=== PATIENT | male | born 1950 | race Caucasian/White ===

== ENCOUNTER → 2019-11-18 | Day surgery (SDC) | payer OTHER ==
[~2019-11-18] MED LIST: Brimonidine 0.2% Ophth Soln 5 ML Bottle EYEBOTH SCH; Phenylephrine 2.5% Ophth Soln 2 ML Bot EYEBOTH SCH; Tropicamide 1% Ophth Soln 15 ML Bottle EYEBOTH SCH
[2019-11-18 12:30] VITALS: BP 134/79; PULSE 50
== END ==
LOC: JD.SDS 11:29
PROVIDERS: ATTEND Ophthalmology
DX: H26.493 Other secondary cataract, bilateral (principal); E78.00 Pure hypercholesterolemia, unspecified; I10 Essential (primary) hypertension; H40.1134 Primary open-angle glaucoma, bilateral, indeterminate stage; H16.103 Unspecified superficial keratitis, bilateral; H16.223 Keratoconjunctivitis sicca, not specified as Sjogren's, bilateral; Z96.1 Presence of intraocular lens; Z98.42 Cataract extraction status, left eye; Z98.41 Cataract extraction status, right eye; Z79.82 Long term (current) use of aspirin; Z79.899 Other long term (current) drug therapy

== ENCOUNTER 2022-07-24 05:45 | Day surgery (SDC) | payer OTHER ==
[~2022-07-24 05:45] MED LIST changes: -Brimonidine 0.2% Ophth Soln 5 ML Bottle EYEBOTH SCH; +Lactated Ringers 1,000 ML IV SCH; +Lidocaine 1%/Sod Bicarbonate in NS 8.4% 1 ML Syringe IDERM PRN; -Phenylephrine 2.5% Ophth Soln 2 ML Bot EYEBOTH SCH; +Sodium Chloride 0.9% 10 ML Syringe FLUSH PRN; +Sodium Chloride 0.9% 10 ML Syringe FLUSH SCH; -Tropicamide 1% Ophth Soln 15 ML Bottle EYEBOTH SCH
[2022-07-24] MEDS ORDERED: Pregabalin 25 MG Cap PO SCH (06:00)
[2022-07-24] MEDS ORDERED: Acetaminophen 325 MG Tab PO SCH (06:00)
[2022-07-24] MEDS ORDERED: oxyCODONE ER 10 MG TAB.ER PO SCH (06:00)
[2022-07-24] MEDS ORDERED: Tranexamic Acid 1,000 MG/10 ML Vial ONE (06:23)
[2022-07-24] MEDS ORDERED: Vancomycin 1 GM SDV ONE (06:23)
[2022-07-24] MEDS ORDERED: ceFAZolin 2 GM Vial ONE (06:43)
[2022-07-24] MEDS ORDERED: Lidocaine 1% 2 ML ONE (06:43)
[2022-07-24] MEDS ORDERED: Rocuronium 50 MG/5 ML Vial ONE (06:43)
[2022-07-24] MEDS ORDERED: Propofol 200 MG/20 ML SDV ONE (06:44)
[2022-07-24] MEDS ORDERED: fentaNYL 100 MCG/2 ML SDV ONE (06:44)
[2022-07-24] MEDS ORDERED: Midazolam 1 MG/ML 2 ML SDV ONE (06:48)
[2022-07-24] MEDS ORDERED: Dexmedetomidine 200 MCG/2 ML SDV ONE (06:55)
[2022-07-24] MEDS ORDERED: Ropivacaine 0.5% 5 MG/ML 30 ML SDV ONE (06:55)
[2022-07-24] MEDS ORDERED: Ondansetron 4 MG/2 ML SDV ONE (07:58)
[2022-07-24] MEDS ORDERED: Ketorolac 30 MG/ML SDV ONE (07:58)
[2022-07-24] MEDS ORDERED: Sugammadex Sodium 200 MG/2 ML VIAL ONE (07:58)
[2022-07-24] MEDS ORDERED: HYDROmorphone 0.5 MG/0.5 ML Syringe IVPUSH PRN (08:19)
[2022-07-24] MEDS ORDERED: fentaNYL 100 MCG/2 ML SDV IVPUSH PRN (08:19)
[2022-07-24] MEDS ORDERED: Ondansetron 4 MG/2 ML SDV IVPUSH PRN (08:19)
[2022-07-24] MEDS ORDERED: oxyCODONE 5 MG Tab PO ONE (08:32)
[2022-07-24] MEDS ORDERED: Cyclobenzaprine 10 MG Tab PO ONE (08:34)
[2022-07-24 12:59] VITALS: BP 135/78; PULSE 80
== END 2022-07-24 12:45 | disposition home or self-care (01) ==
LOC: JD.SDS 05:45 → EDSTATUS 08:45 → JD.SDS 12:45
PROVIDERS: ATTEND Orthopaedic Surgery
DX: M19.012 Primary osteoarthritis, left shoulder (principal); I10 Essential (primary) hypertension; E78.00 Pure hypercholesterolemia, unspecified; G47.30 Sleep apnea, unspecified; Z79.899 Other long term (current) drug therapy; Z79.82 Long term (current) use of aspirin; Z98.890 Other specified postprocedural states; Z87.891 Personal history of nicotine dependence
CPT/HCPCS: 23472; 36415; 64415; 73020; 76000; 85730; 97166; 97530; A9270; C1713; C1769; C1776; J0690; J1170; J1885; J2250; J2405; J2704; J2795; J3010; J3370; J3490; J7120; 01638

== ENCOUNTER 2023-08-04 05:35 | Day surgery (SDC) | payer OTHER ==
[~2023-08-04 05:35] MED LIST changes: -Lactated Ringers 1,000 ML IV SCH; -Lidocaine 1%/Sod Bicarbonate in NS 8.4% 1 ML Syringe IDERM PRN; -Sodium Chloride 0.9% 10 ML Syringe FLUSH SCH
[2023-08-04] MEDS ORDERED: Midazolam 1 MG/ML 2 ML SDV ONE (06:05)
[2023-08-04] MEDS ORDERED: fentaNYL 100 MCG/2 ML SDV ONE (06:05)
[2023-08-04] MEDS ORDERED: Ondansetron 4 MG/2 ML SDV ONE (06:05)
[2023-08-04] MEDS ORDERED: Rocuronium 50 MG/5 ML Vial ONE (06:05)
[2023-08-04] MEDS ORDERED: ceFAZolin 2 GM Vial ONE (06:05)
[2023-08-04] MEDS ORDERED: Propofol 200 MG/20 ML SDV ONE ×2 (06:05→09:01)
[2023-08-04] MEDS ORDERED: Lidocaine 1% 4 ML ONE (06:05)
[2023-08-04] MEDS ORDERED: dexmedeTOMIDine HCl 200 MCG/2 ML SDV ONE (06:08)
[2023-08-04] MEDS ORDERED: EPINEPHrine 1 MG/ML SDV ONE (06:15)
[2023-08-04] MEDS ORDERED: Ropivacaine 0.5% 5 MG/ML 30 ML SDV ONE (06:15)
[2023-08-04] MEDS: oxyCODONE ER 10 MG TAB.ER PO ONE (06:30)
[2023-08-04] MEDS: Acetaminophen 325 MG Tab PO ONE (06:30)
[2023-08-04] MEDS: Pregabalin 25 MG Cap PO ONE (06:30)
[2023-08-04] MEDS: Lactated Ringers 1,000 ML IV SCH (06:31)
[2023-08-04] MEDS ORDERED: ePHEDrine 50 MG/ML SDV ONE (08:10)
[2023-08-04] MEDS ORDERED: Dexamethasone 4 MG/ML 5 ML MDV ONE (08:14)
[2023-08-04] MEDS ORDERED: Phenylephrine 1% 10 MG/ML SDV ONE (08:23)
[2023-08-04] MEDS ORDERED: Sodium Chloride 0.9% 10 ML Syringe FLUSH SCH (09:00)
[2023-08-04] MEDS: Vancomycin 1 GM SDV ONE (09:06)
[2023-08-04] MEDS: Tranexamic Acid 1,000 MG/10 ML Vial ONE (09:06)
[2023-08-04] MEDS ORDERED: Lactated Ringers 1,000 ML ONE (09:19)
[2023-08-04] MEDS ORDERED: fentaNYL 100 MCG/2 ML SDV IVPUSH PRN (09:35)
[2023-08-04] MEDS ORDERED: Ondansetron 4 MG/2 ML SDV IVPUSH PRN (09:35)
[2023-08-04] MEDS ORDERED: HYDROmorphone 0.5 MG/0.5 ML Syringe IVPUSH PRN (09:35)
[2023-08-04 13:05] VITALS: BP 142/74; PULSE 62
== END 2023-08-04 13:00 | disposition home or self-care (01) ==
LOC: JD.SDS 05:35
PROVIDERS: ATTEND Orthopaedic Surgery
DX: M19.011 Primary osteoarthritis, right shoulder (principal); M75.121 Complete rotator cuff tear or rupture of right shoulder, not specified as traumatic; I10 Essential (primary) hypertension; G47.33 Obstructive sleep apnea (adult) (pediatric); K57.30 Diverticulosis of large intestine without perforation or abscess without bleeding; K63.5 Polyp of colon; Z87.891 Personal history of nicotine dependence; Z79.899 Other long term (current) drug therapy
CPT/HCPCS: 01638; 64415; 76000; 76000-26; 97161-GP; 99100; A9270-GY; C1713; C1769; C1776; J0171; J0690; J1100; J1596; J2250; J2371; J2405; J2704; J2795; J3010; J3370; J3490; J7030; J7120